=== PATIENT | female | born 1975 | race Caucasian/White ===

== ENCOUNTER 2017-11-12 01:33 | Emergency (ER) | payer BC ==
[2017-11-12] MEDS ORDERED: 0.9 % SODIUM CHLORIDE 1,000 ML BAG IV ONE (02:22)
--- NOTE | 2017-11-12 02:27 | Emergency Department Record ---
History of Present Illness - General Chief complaint: ENT Stated complaint: PAIN Time Seen by Provider: 11/12/17 02:15 Source: Patient, Family - History of Present Illness Initial comments: The patient began having painful throat symptoms 11-08-17, of pain, right side of her throat. Thursday11-10-17 she saw her PCP who gave her prednisone, magic mouth wash and pain medication, all of which have not helped. The symptoms have worsened such that it hurts around the right ear region, right neck region and right throat region, not crossing to her left side, and not involving the back of her neck. She has had subjective fevers, chills, and sweats. She is able to swallow painfully and denies shortness of breath or drooling. MD complaint: Difficulty swallowing - Related Data Home Medications Medication Instructions Recorded Confirmed Last Taken Acetaminop W/ Codeine 300/30Mg 2 tab PO Q6H PRN 11/12/17 11/12/17 Unknown [Tylenol #3] Magic Mouthwash 5 ml SSW Q4HR 11/12/17 11/12/17 Unknown Prednisone [Prednisone 20Mg] 20 mg PO DAILY 11/12/17 11/12/17 Unknown Allergies Allergy/AdvReac Type Severity Reaction Status Date / Time No Known Drug Allergies Allergy Verified 11/12/17 02:10 Review of Systems Reviewed: No additional complaints except as noted below Constitutional: Reports: As per HPI. Denies: Chills, Fever, Malaise, Night sweats, Weakness, Weight change Eyes: Reports: As per HPI. Denies: Eye discharge, Eye pain, Photophobia, Vision change ENT: Reports: As per HPI. Denies: Congestion, Dental pain, Ear pain, Epistaxis , Hearing loss, Throat pain Respiratory: Reports: As per HPI. Denies: Cough, Dyspnea, Hemoptysis, Stridor, Wheezes Cardiovascular: Reports: As per HPI. Denies: Arrhythmia, Chest pain, Dyspnea on exertion, Edema, Murmurs, Orthopnea, Palpitations, Paroxysmal nocturnal dyspnea, Rheumatic Fever, Syncope Endocrine: Reports: As per HPI. Denies: Fatigue, Heat or cold intolerance, Polydipsia, Polyuria Gastrointestinal: Reports: As per HPI. Denies: Abdominal pain, Constipation, Diarrhea, Hematemesis, Hematochezia, Melena, Nausea, Vomiting Genitourinary: Reports: As per HPI. Denies: Abnormal menses, Discharge, Dyspareunia, Dysuria, Frequency, Hematuria, Incontinence, Retention, Urgency Musculoskeletal: Reports: As per HPI. Denies: Arthralgia, Back pain, Gout, Joint swelling, Myalgia, Neck pain Skin: Reports: As per HPI. Denies: Bruising, Change in color, Change in hair/ nails, Lesions, Pruritus, Rash Neurological: Reports: As per HPI. Denies: Abnormal gait, Confusion, Headache, Numbness, Paresthesias, Seizure, Tingling, Tremors, Vertigo, Weakness Psychiatric: Reports: As per HPI. Denies: Anxiety, Auditory hallucinations, Depression, Homicidal thoughts, Suicidal thoughts, Visual hallucinations Hematological/Lymphatic: Reports: As per HPI. Denies: Anemia, Blood Clots, Easy bleeding, Easy bruising, Swollen glands Physical Exam - General General Appearance: Alert, Oriented x3, Cooperative, Moderate distress - Head Head exam: Normal inspection - Eye Eye exam: Normal appearance, PERRL, EOMI. negative: Nystagmus Pupils: Normal accommodation - ENT ENT exam: Normal exam, Mucous membranes moist, Normal external ear exam, Normal orophraynx, TM's normal bilaterally Ear exam: Normal external inspection. negative: External canal tenderness Nasal Exam: Normal inspection. negative: Discharge, Sinus tenderness Mouth exam: Normal external inspection, Tongue normal Teeth exam: Normal inspection, Other (teeth are nontender on percussion and clenching of jaw). negative: Dental caries Throat exam: Normal inspection, R peritonsillar mass (with uvula shifted across midline to left side; no stridor, no drooling, airway patent), Other (right tonsil erythematous, edematous and tender to palpation over external angle of mandible.). negative: Tonsillar erythema, Tonsillar exudate - Neck Neck exam: Normal inspection, Full ROM, Lymphadenopathy (trace of right cervical anterior LNopathy). negative: Meningismus, Tenderness - Respiratory Respiratory exam: Normal lung sounds bilaterally. negative: Respiratory distress - Cardiovascular Cardiovascular Exam: Regular rate, Normal rhythm, Normal heart sounds - GI/Abdominal GI/Abdominal exam: Soft, Normal bowel sounds. negative: Tenderness - Rectal Rectal exam: Deferred - exam: Deferred - Extremities Extremities exam: Normal inspection, Full ROM, Normal capillary refill. negative: Tenderness - Back Back exam: Reports: Normal inspection, Full ROM. Denies: Muscle spasm, Rash noted, Tenderness - Neurological Neurological exam: Alert, Normal gait, Oriented X3, Reflexes normal - Psychiatric Psychiatric exam: Normal affect, Normal mood - Skin Skin exam: Dry, Intact, Normal color, Warm Course - Reevaluation(s) Reevaluation #1: Patient states her pain level is 7-8/10, She requests to be sent to [facility] in [place] for her EN referral. 11/12/17 03:53 Reevaluation #2: KELVIN Payan, emergency attending physician in [facility] Emergency department. 11/12/17 04:00 Reevaluation #3: The patient has no stridor, drooling or airway compromise. Her voice is slightly "thick" sounding as before. 11/12/17 04:07 Medical Decision Making - Management Options MDM Management: Additional Work-up Planned (e.g. ADM/Transfer/OP Study) ( Transfer to [facility] EDept for ENT to treat.) - Data Complexity MDM Data: Labs Ordered and/or Reviewed, X-Ray Ordered and/or Reviewed (Constast soft tissue neck: Complex fluid collection located in the right tonsillar pillar extending into the lateral wall of the oral cavity located at the level just above the tongue base consistent with a tonsillar/peritonisllar bscess. The inferior component resides just anterior to the pterygoid musculature and extends close to the retromolar triangle. Superiorly the abscess ends at the level of the soft palate. Therre is associated cervical adenopathy without evidence of necrosis. No evidence of venous thrombosis. Per Vrad.) - Lab Data Result diagrams: 11/12/17 02:30 11/12/17 02:30 Disposition Disposition: Transfer Clinical Impression: Peritonsillar abscess Disposition: Acute Care Hospital Transfer Transfer To: [facility] Emergency Department Reason For Transfer: ENT referral for peritonsillar abscess Accepting Physician: Dr. Payan emergency attending physican [facility] Time Discussed w/Accepting Physician: 04:07 Condition: (1) Good Quality - Quality Measures Quality Measures: N/A - Blood Pressure Screening Does Patient Have Any of the Following: No Blood Pressure Classification: Normal BP Reading Systolic Measurement: 109 Diastolic Measurement: 77 Screening for High Blood Pressure: < Normal BP, F/U Not Required > [G1072]
[2017-11-12] MEDS ORDERED: AMPICILLIN SODIUM/SULBACTAM NA 3 G in 0.9 % SODIUM CHLORIDE 100ML 100 ML IVPB ONE (02:35)
[2017-11-12 02:38] LABS: BASO % 0.2 % (0-6); GRAN % 72.4 % (47-80); HEMATOCRIT 37.9 % (35.0-47.0); HEMOGLOBIN 12.5 gm/dl (11.6-16.0); LYMPH % 19.5 % (16-45); MEAN CELL VOLUME 89.4 fl (81-97); MEAN CORPUSCULAR HEMOGLOBIN 29.5 pg (27-33); MEAN PLATELET VOLUME 10.1 fl (7.4-10.4); MONO % 6.9 % (0-9); PLATELET COUNT 280 K/uL (130-400); RED BLOOD COUNT 4.24 M/uL (3.80-5.40); RED CELL DISTRIBUTION WIDTH 13.8 % (11.5-14.5); WHITE BLOOD COUNT W/O DIFF 16.2 K/uL (4.2-12.2)
[2017-11-12 02:44] LABS: URINE APPEARANCE CLEAR; URINE BILIRUBIN NEGATIVE (NEGATIVE); URINE BLOOD NEGATIVE (NEGATIVE); URINE COLOR YELLOW; URINE GLUCOSE (UA) NEGATIVE (NEGATIVE); URINE KETONE NEGATIVE (NEGATIVE); URINE LEUKOCYTE ESTERASE NEGATIVE (NEGATIVE); URINE NITRITE NEGATIVE (NEGATIVE); URINE PROTEIN NEGATIVE (NEGATIVE); URINE UROBILINOGEN 0.2 E.U./dL (0.20 - 1.00)
[2017-11-12 02:50] LABS: BLOOD UREA NITROGEN 13 mg/dL (6-20)
[2017-11-12 02:51] LABS: CREATININE 0.5 mg/dL (0.5-0.9); EST GLOMERULAR FILTRATION RATE > 60 mL/min; TOTAL PROTEIN 7.2 g/dL (6.6-8.7)
[2017-11-12 02:53] LABS: GLUCOSE,RANDOM 104 mg/dL (74-109)
[2017-11-12 02:56] LABS: ALB/GLOB RATIO 1.2 (1.1-1.8); ALBUMIN 3.9 g/dL (4.0-5.0); ALKALINE PHOSPHATASE 69 U/L (35-104); ALT/SGPT 11 U/L (<33); AST/SGOT 19 U/L (10.0-35.0)
[2017-11-12] MEDS ORDERED: MORPHINE SULFATE 5 MG/ML PFS IVP ONE (03:52)
[2017-11-12] MEDS ORDERED: ONDANSETRON HCL IV 4 MG/2 ML VIAL IVP ONE (03:53)
[2017-11-12] MEDS ORDERED: 0.9 % SODIUM CHLORIDE 1000ML 1,000 ML IV PRN (04:12)
--- NOTE | 2017-11-12 09:42 | CT SCAN REPORT ---
EXAM: CT OF THE NECK HISTORY: RIGHT SIDED NECK PAIN. TECHNIQUE: CT of the neck was performed following IV administration of 100 ml of Omnipaque 300 contrast. Axial images were obtained with coronal and sagittal reconstructions. Comparison: None. FINDINGS: Limited evaluation of the brain parenchyma is unremarkable. The globes are intact. The paranasal sinuses and mastoid air cells are unremarkable. There is a complex peripherally enhancing fluid density lesion in the right tonsillar pillar causing slight mass effect on the oropharynx. This is consistent with peritonsillar abscess. There is surrounding inflammation and phlegmon. The abscess itself measures approximately 2.6 x 1.4 cm. The airway is otherwise widely patent. Limited evaluation of the lung apices is unremarkable. The osseous structures are grossly intact. Multiple thyroid nodules are noted bilaterally. Correlation with ultrasound recommended. IMPRESSION: 1. RIGHT PERITONSILLAR ABSCESS WITH ASSOCIATED MASS EFFECT. NOT STATED PREVIOUSLY, THERE IS ASSOCIATED, LIKELY REACTIVE CERVICAL CHAIN ADENOPATHY. THE LARGEST LYMPH NODE IS IN THE RIGHT LEVEL TWO STATION MEASURING 1.5 X 1.5 CM. 2. MULTIPLE THYROID NODULES. FOLLOW-UP WITH DEDICATED THYROID ULTRASOUND IS RECOMMENDED. JOB NUMBER: [id number] [facility]
== END 2017-11-12 04:20 | disposition short-term general hospital (02) ==
LOC: ER 01:33
DX: J36 Peritonsillar abscess (principal); R13.10 Dysphagia, unspecified; M54.2 Cervicalgia; E04.2 Nontoxic multinodular goiter
CPT/HCPCS: 99285 ×2; 96365; 96375; 96361; 85025; 80053; 81003; 81025; 86308; 70491; Q9967; J0295; J2405; J2270; J7030

== ENCOUNTER 2019-09-03 18:02 | Emergency (ER) | payer BC ==
--- NOTE | 2019-09-03 18:19 | Emergency Department Record ---
History of Present Illness - General Chief complaint: Bite Insect/other Stated complaint: BUG BITE Time Seen by Provider: 09/03/19 18:10 Source: Patient Mode of Arrival: Ambulatory Limitations: No limitations - History of Present Illness Initial comments: pt has bite on l thigh which has increased erythema and streaking complaint: Insect bite/sting Onset/Timin -: Days(s) Location: LLE Severity: Mild Associated symptoms: Denies other symptoms Treatments Prior to Arrival: None - Related Data Home Medications Medication Instructions Recorded Confirmed Last Taken Ibuprofen [Motrin] 800 mg PO Q8H PRN 09/03/19 09/03/19 Unknown Previous Rx's Medication Instructions Recorded Cephalexin [Keflex] 500 mg PO QID #28 cap 09/03/19 Allergies Allergy/AdvReac Type Severity Reaction Status Date / Time No Known Drug Allergies Allergy Verified 11/12/17 02:10 Travel Screening - Travel/Exposure Within Last 30 Days Have you traveled within the last 30 days?: No Review of Systems Reviewed: No additional complaints except as noted below Constitutional: Reports: As per HPI. Denies: Chills, Fever, Malaise, Night sweats, Weakness, Weight change Eyes: Reports: As per HPI. Denies: Eye discharge, Eye pain, Photophobia, Vision change ENT: Reports: As per HPI. Denies: Congestion, Dental pain, Ear pain, Epistaxis, Hearing loss, Throat pain Respiratory: Reports: As per HPI. Denies: Cough, Dyspnea, Hemoptysis, Stridor, Wheezes Cardiovascular: Reports: As per HPI. Denies: Arrhythmia, Chest pain, Dyspnea on exertion, Edema, Murmurs, Orthopnea, Palpitations, Paroxysmal nocturnal dyspnea, Rheumatic Fever, Syncope Endocrine: Reports: As per HPI. Denies: Fatigue, Heat or cold intolerance, Polydipsia, Polyuria Gastrointestinal: Reports: As per HPI. Denies: Abdominal pain, Constipation, Diarrhea, Hematemesis, Hematochezia, Melena, Nausea, Vomiting Genitourinary: Reports: As per HPI. Denies: Abnormal menses, Discharge, Dyspareunia, Dysuria, Frequency, Hematuria, Incontinence, Retention, Urgency Musculoskeletal: Reports: As per HPI. Denies: Arthralgia, Back pain, Gout, Joint swelling, Myalgia, Neck pain Skin: Reports: As per HPI. Denies: Bruising, Change in color, Change in hair/nails, Lesions, Pruritus, Rash Neurological: Reports: As per HPI. Denies: Abnormal gait, Confusion, Headache, Numbness, Paresthesias, Seizure, Tingling, Tremors, Vertigo, Weakness Psychiatric: Reports: As per HPI. Denies: Anxiety, Auditory hallucinations, De pression, Homicidal thoughts, Suicidal thoughts, Visual hallucinations Hematological/Lymphatic: Reports: As per HPI. Denies: Anemia, Blood Clots, Easy bleeding, Easy bruising, Swollen glands Past Medical History - SOCIAL HISTORY Smoking Status: Never smoker Alcohol Use: None Drug Use: None - RESPIRATORY Hx Respiratory Disorders: No - CARDIOVASCULAR Hx Cardio Disorders: No - NEURO Hx Neuro Disorders: No - GI Hx GI Disorders: No - Hx Genitourinary Disorders: No - ENDOCRINE Hx Endocrine Disorders: No - MUSCULOSKELETAL Hx Musculoskeletal Disorders: No - PSYCH Hx Psych Problems: No - HEMATOLOGY/ONCOLOGY Hx Hematology/Oncology Disorders: No Family Medical History Any Significant Family History?: Yes Hx Cancer: Mother *Cancer Comment: colon Physical Exam - General General Appearance: Alert, Oriented x3, Cooperative, Mild distress - Head Head exam: Normal inspection - Eye Eye exam: Normal appearance, PERRL, EOMI Pupils: Normal accommodation - ENT ENT exam: Normal exam, Mucous membranes moist, Normal external ear exam, Normal orophraynx Ear exam: Normal external inspection. negative: External canal tenderness Nasal Exam: Normal inspection. negative: Discharge, Sinus tenderness Mouth exam: Normal external inspection, Tongue normal Teeth exam: Normal inspection. negative: Dental caries Throat exam: Normal inspection. negative: Tonsillar erythema, Tonsillar exudate - Neck Neck exam: Normal inspection, Full ROM. negative: Tenderness - Respiratory Respiratory exam: Normal lung sounds bilaterally. negative: Respiratory distress - Cardiovascular Cardiovascular Exam: Regular rate, Normal rhythm, Normal heart sounds - GI/Abdominal GI/Abdominal exam: Soft, Normal bowel sounds. negative: Tenderness - Rectal Rectal exam: Deferred - exam: Deferred - Extremities Extremities exam: Normal inspection, Full ROM, Normal capillary refill. negative: Tenderness - Back Back exam: Reports: Normal inspection, Full ROM. Denies: Muscle spasm, Rash noted, Tenderness - Neurological Neurological exam: Alert, CN II-XII intact, Normal gait, Oriented X3 - Psychiatric Psychiatric exam: Normal affect, Normal mood - Skin Skin exam: Dry, Intact, Normal color, Warm Type of lesion: Bite/sting Distribution of rash: LLE Description of rash: Erythematous, Swelling Course Vital Signs 09/03/19 18:06 Temperature 97.7 F Pulse Rate 75 Respiratory 16 Rate Blood Pressure 130/83 Pulse Ox 100 Disposition Disposition: Discharge Clinical Impression: Insect bite, infected Qualifiers: Encounter type: initial encounter Qualified Code(s): W57.XXXA - Bitten or stung by nonvenomous insect and other nonvenomous arthropods, initial encounter Disposition: Home, Self-Care Condition: (1) Good Instructions: Insect Bite or Sting (ED), Cellulitis (ED) Additional Instructions: follow up with family doctor. return sooner if worse. moist heat Prescriptions: Cephalexin [Keflex] 500 mg PO QID #28 cap Quality - Quality Measures Quality Measures: N/A - Blood Pressure Screening Does Patient Have Any of the Following: No Blood Pressure Classification: Pre-Hypertensive BP Reading Systolic Measurement: 130 Diastolic Measurement: 83 Screening for High Blood Pressure: < Pre-Hypertensive BP, F/U Documented > [G8950] Pre-Hypertensive Follow-up Interventions: Follow-up with rescreen every year.
[2019-09-03] MEDS ORDERED: CEPHALEXIN 500 MG CAPSULE PO STA (18:20)
== END 2019-09-03 18:39 | disposition home or self-care (01) ==
LOC: ER 18:02
DX: S70.362A Insect bite (nonvenomous), left thigh, initial encounter (principal); W57.XXXA Bitten or stung by nonvenomous insect and other nonvenomous arthropods, initial encounter
CPT/HCPCS: 99283